=== PATIENT | female | born 1955 | race Caucasian/White ===

== ENCOUNTER → 2017-11-25 | Outpatient (CLI) | payer MEDICAID ==
[2012-12-21 08:51] VITALS: BP 128/79
--- NOTE | 2017-11-26 09:28 | CT ---
HISTORY: Post laminectomy syndrome. Patient states is screws coming out. Low back pain and numbness i n the bilateral lower extremities. Study: CT lumbar spine without contrast Comparison: None available. Technique: Multiple axial images of the lumbar spine were obtained from the thoracolumbar junction t o the sacrum without the administration of IV contrast. Sagittal and coronal reformats were performe d and reviewed. Dose reduction techniques including Automated Exposure Control (AEC) and adjustment of mA and kV were utilized. Findings: Patient is status post posterior fusion at L2-3 S1 with associated disc spacers at L3 through L5. The visualized hardware appears intact. Likely remote compression fractures at T12 and L1. No obvious ac [place] fracture or listhesis. No significant neural foraminal narrowing or spinal canal stenosis. Vascul ar calcifications without aneurysmal dilatation. Remaining soft tissues are unremarkable. IMPRESSION: Chronic findings as above. Reported By:
== END ==
LOC: RAD 14:15
PROVIDERS: ATTEND Orthopaedic Surgery
DX: M96.1 Postlaminectomy syndrome, not elsewhere classified (principal)
CPT/HCPCS: 72131